=== PATIENT | male | born 1985 | race Caucasian/White ===

== ENCOUNTER 2018-07-10 12:25 | Emergency (ER) | payer OTHER ==
[2018-07-10] MEDS: IBUPROFEN 600 MG TAB PO (14:29)
== END 2018-07-10 15:50 | disposition home or self-care (01) ==
LOC: FTE 12:25
DX: S92.511A Displaced fracture of proximal phalanx of right lesser toe(s), initial encounter for closed fracture (principal); F17.210 Nicotine dependence, cigarettes, uncomplicated; W22.8XXA Striking against or struck by other objects, initial encounter; Y92.9 Unspecified place or not applicable
CPT/HCPCS: 73660; 99283-25